=== PATIENT | female | born 1980 | race Caucasian/White ===

== ENCOUNTER 2016-06-19 08:46 | Emergency (ER) | payer OTHER ==
[~2016-06-19] VITALS: Ht 147.3 cm; Wt 68.9 kg
[2016-06-19 09:29] VITALS: BP 97/70
== END 2016-06-19 09:29 | disposition home or self-care (01) ==
LOC: ED 08:46
DX: N93.8 Other specified abnormal uterine and vaginal bleeding (principal); Z88.5 Allergy status to narcotic agent; Z79.899 Other long term (current) drug therapy